=== PATIENT | female | born 1995 | race Caucasian/White ===

== ENCOUNTER 2019-12-23 01:02 | Inpatient (IN) ==
[2019-12-23] MEDS ORDERED: Lactated Ringers 1000 ml BAG 1,000 ML IV ONE (02:22)
[2019-12-23] MEDS ORDERED: Lactated Ringers 1000 ml BAG 1,000 ML IV SCH ×2 (03:00→04:00)
[2019-12-23] MEDS ORDERED: Witch Hazel PAD JAR TOPICAL PRN (04:00)
[2019-12-23] MEDS ORDERED: Dibucaine 1% OINT 28.35 GM TUBE PR PRN (04:00)
[2019-12-23] MEDS ORDERED: Oxytocin 10 UNITS/ML 1 ML VIAL IM ONE (04:00)
[2019-12-23] MEDS ORDERED: Glycerin ADULT 2.4 gm SUPP PR PRN (04:00)
[2019-12-23 07:48] LABS: Urine Benzodiazepine Screen None Detected (None Detect); Urine Cannabinoids Screen None Detected (None Detect); Urine Opiates Screen None Detected (None Detect)
[2019-12-24 08:09] VITALS: BP 98/65
[2019-12-24 08:09] LABS: ABS Basophils 0.1 10^3/ul (0-0.2); ABS Eosinophils 0.1 10^3/ul (0-0.6); ABS Lymphocytes 2.5 10^3/ul (1.0-4.8); ABS Neutrophils 8.1 10^3/ul (1.5-7.7); Eosinophil % 0.8 %; Hematocrit 36 % (35-47); Hemoglobin 13.1 g/dL (12.0-16.0); Lymphocyte % 21.5 %; Mean Corpuscular HGB Conc 36 g/dL (31-36); Mean Corpuscular Hemoglobin 33 pg (27-31); Mean Corpuscular Volume 90 fL (80-97); Mean Platelet Volume 7.8 fL (7.4-10.4); Platelet Count 109 10^3/uL (150-450); Red Blood Count 4.03 10^6 /uL (3.70-4.87); Red Cell Distribution Width 13 % (10-15); White Blood Count 11.8 10^3/uL (3.5-10.8)
[2019-12-24] MEDS ORDERED: Influenza VAC *QUAD* 2020-21* 0.5 ML SYRINGE IM ONE (17:15)
== END 2019-12-24 17:25 | disposition home or self-care (01) | DRG 560 ==
LOC: MCHOBOUT 01:02 → MCHOB 02:20
PROVIDERS: ADMIT Midwife; ATTEND Midwife